=== PATIENT | male | born 1975 | race Caucasian/White ===

== ENCOUNTER 2020-09-17 23:21 | Emergency (ER) | payer MEDICAID, OTHER ==
[~2020-09-17] VITALS: Ht 190.5 cm; Wt 113.0 kg
[2020-09-17] MEDS ORDERED: KETOROLAC 30MG/ML VIAL IM ONE (23:45)
[2020-09-18 00:52] LABS: BASOPHILS % 0.6 % (0.0-2.0); EOSINOPHILS % 0.7 % (0.0-5.0); HEMATOCRIT. 41.9 % (42.0-52.0); HEMOGLOBIN. 14.4 g/dL (14.0-18.0); LYMPHOCYTES % 20.2 % (20.0-50.0); MEAN CORPUSCULAR HEMOGLOBIN 31.3 pg (28.0-32.0); MEAN CORPUSCULAR VOLUME 91.5 fL (80.0-94.0); MEAN PLATELET VOLUME 8.5 fl (7.4-10.4); NEUTROPHILS % 71.5 % (40.0-76.0); PLATELET 192 x1000/uL (130-400); RED BLOOD CELL COUNT 4.58 mill/uL (4.7-6.1); RED CELL DISTRIBUTION WIDTH 13.9 % (11.6-14.6)
[2020-09-18 00:59] LABS: CHLORIDE 108 mEq/L (98-107)
[2020-09-18 03:15] VITALS: BP 135/77
[2020-09-18] MEDS ORDERED: IOHEXOL-300 100 ML BOTTLE ONE (04:06)
== END 2020-09-18 03:18 | disposition home or self-care (01) ==
LOC: ER 23:21
DX: R10.32 Left lower quadrant pain (principal); V49.59XA Passenger injured in collision with other motor vehicles in traffic accident, initial encounter; Y93.89 Activity, other specified; Y92.89 Other specified places as the place of occurrence of the external cause; Y99.8 Other external cause status
CPT/HCPCS: 36415; 73060; 73610; 73630; 74177; 80053; 85025; 96372; 99285; J1885; Q9967; Z7610